=== PATIENT | female | born 1955 | race Caucasian/White ===

== ENCOUNTER 2018-03-24 12:53 | Outpatient (CLI) | payer OTHER ==
--- NOTE | 2018-03-24 14:13 | ULT ---
THYROID SONOGRAM: HISTORY: Right neck lump. FINDINGS: Right thyroid lobe is 5.3 cm in length and demonstrates several small solid and cystic nodules. They measure up to 1.1 cm greatest diameter at the inferior pole. Isthmus is 0.4 cm. Left thyroid lobe is 5.2 cm. A 0.9 cm hypoechoic nodule near the inferior pole lies adjacent to a 0. 6 cm cyst. IMPRESSION: Small nonspecific bilateral thyroid lobe nodules. Thyroid gland is slightly enlarged. No dominant a ggressive mass is evident. POS: [facility]
== END 2018-03-24 12:54 | disposition home or self-care (01) ==
LOC: BICULT 12:53
PROVIDERS: ATTEND Family Medicine
DX: R68.89 Other general symptoms and signs (principal); E04.2 Nontoxic multinodular goiter; E04.9 Nontoxic goiter, unspecified
CPT/HCPCS: 76536

== ENCOUNTER 2018-09-15 13:55 | Outpatient (CLI) | payer OTHER ==
--- NOTE | 2018-09-15 16:46 | MRI ---
PRE AND POSTCONTRAST ENHANCED MRI IMAGES CEVICAL SPINE. 09/15/18 HISTORY: Chronic neck pain. Multiplanar and multisequence pre and postcontrast enhanced MRI images cervical spine obtained. The spinal cord is unremarkable with no evidence of cord masses or lesions. C1-2: Unremarkable. C2-3: Unremarkable. C3-4: There is a minimal central disc bulge compressing the thecal sac. The neural foramen are patent . C4-5: Unremarkable. C5-6: There is minimal anterolisthesis of C5 on C6. The neural foramen are patent. No significant de gree of central stenosis seen. C6-7: There is disc desiccation. Some irregularity seen in the inferior end plate of C6 and superior end plate of C7. There is disc space height loss seen. There is a mild broad based disc bulge. The ne ural foramen are patent. C7-T1: Unremarkable. IMPRESSION: C6-7 disc desiccation, end plate irregularity and mild broad based disc bulge. POS: [facility]
--- NOTE | 2018-09-15 16:56 | MRI ---
MRI Brain W WO Con: 09/15/2018 12:00 AM CLINICAL HISTORY: Chronic headache. COMPARISON: 05/25/2016 FINDINGS: Extra axial spaces: Mild prominence of CSF signal due to parenchymal volume loss. Acute infarction: None. Ventricular system: Normal in size and morphology for the patient's age. Basal cisterns: Normal. Cerebral parenchyma: Normal. Midline shift: None. Cerebellum: Normal. Brainstem: Normal. Paranasal sinuses:Clear Intraaxial Enhancement: None IMPRESSION:No acute intracranial abnormality.
--- NOTE | 2018-09-15 16:58 | RAD ---
Radiograph cervical spine 5 views: HISTORY: 63-year-old female with cervicalgia FINDINGS: Multilevel bilateral high-grade facet DJD, including severe. High-grade degenerative disc disease at C6-7. The rest of the disc spaces are maintained. Grade 1 anterolisthesis of C5 on C6 due to facet DJD. Vertebral body heights are maintained. IMPRESSION: Cervical spondylosis, including high-grade degenerative disc disease at C6-7, and multilevel high-gra de bilateral facet osteoarthrosis at all levels, including severe.
== END 2018-09-15 13:56 | disposition home or self-care (01) ==
LOC: BICMRI 13:55
DX: G43.719 Chronic migraine without aura, intractable, without status migrainosus (principal); M54.2 Cervicalgia; G89.29 Other chronic pain; M50.323 Other cervical disc degeneration at C6-C7 level; M50.223 Other cervical disc displacement at C6-C7 level; M47.812 Spondylosis without myelopathy or radiculopathy, cervical region
CPT/HCPCS: 70553; 72040; 72156

== ENCOUNTER 2019-06-20 08:28 | Outpatient (CLI) | payer OTHER ==
--- NOTE | 2019-06-20 09:09 | BD ---
DEXA BONE DENSITY STUDY: Date: 06/20/2019 HISTORY: Osteoporosis screening. COMPARISON: None. FINDINGS: Lumbar Spine: BMD (g/cm2) L1 0.942 T-Score: -0.4 Z-Score: 1.1 L2 0.973 T-Score: -0.5 Z-Score: 1.2 L3 0.962 T-Score: -1.1 Z-Score: 0.7 L4 0.889 T-Score: -1.6 Z-Score: 0.3 L1-L4 0.939 T-Score: -1.0 Z-Score: 0.8 Left Femoral Neck: 0.725 T-Score: -1.1 Z-Score: 0.4 Total Femur: 0.900 T-Score: -0.3 Z-Score: 0.9 WHO Classification: Osteopenia. 10 YEAR FRACTURE RISK: Major osteoporotic fracture: 13% Hip fracture: 1.2% IMPRESSION: Osteopenia with fracture risk as above. POS: [facility]
--- NOTE | 2019-06-20 09:11 | MMO ---
Bilateral MAMMO Bilat Screen [facility]. CLINICAL HISTORY: Patient is 63 years old and is seen for screening. The patient has the following family history of breast cancer: 3 maternal aunts and cousin gender unknown. The patient has no personal history of cancer. VIEWS: The views performed were: bilateral craniocaudal with tomosynthesis and bilateral mediolateral oblique with tomosynthesis. FILMS COMPARED: The present examination has been compared to prior imaging studies performed at 04/20/2016, and at [facility] on 09/11/2013. This study has been interpreted with the assistance of computer-aided detection. MAMMOGRAM FINDINGS: There are scattered fibroglandular densities. There are no suspicious masses, suspicious calcifications, or new areas of architectural distortion. IMPRESSION: THERE IS NO MAMMOGRAPHIC EVIDENCE OF MALIGNANCY. A ROUTINE FOLLOW-UP MAMMOGRAM IN 1 YEAR IS RECOMMENDED. THE RESULTS OF THIS EXAM WERE SENT TO THE PATIENT. ACR BI-RADS Category 1 - Negative MAMMOGRAPHY NOTE: 1. A negative mammogram report should not delay a biopsy if a dominant of clinically suspicious mass is present. 2. Approximately 10% to 15% of breast cancers are not detected by mammography. 3. Adenosis and dense breasts may obscure an underlying neoplasm. Reported by: FELA RAI MD Electonically Signed: [id number]
== END 2019-06-20 08:29 | disposition home or self-care (01) ==
LOC: BICMAMMO 08:28
PROVIDERS: ATTEND Obstetrics & Gynecology
DX: Z12.31 Encounter for screening mammogram for malignant neoplasm of breast (principal); Z13.820 Encounter for screening for osteoporosis; M85.89 Other specified disorders of bone density and structure, multiple sites; Z80.3 Family history of malignant neoplasm of breast
CPT/HCPCS: 77063; 77067; 77080

== ENCOUNTER 2019-06-22 16:16 | Outpatient (CLI) | payer OTHER ==
--- NOTE | 2019-06-22 16:36 | RAD ---
Left knee 3 views HISTORY: Left knee pain. FINDINGS: Moderate joint space narrowing of the lateral patellofemoral facet. Osteophytosis throughou t each compartment. No acute fracture, dislocation, or fluid distention of the suprapatellar bursa. IMPRESSION: Moderate osteoarthritic changes most pronounced at the lateral patellofemoral facet.
--- NOTE | 2019-06-22 16:37 | RAD ---
Right knee 3 views HISTORY: Right knee pain. FINDINGS: Moderate tricompartmental osteophytosis. Moderate joint space loss at the lateral patellofe moral facet. No acute fracture, dislocation, or fluid distention of the suprapatellar bursa. IMPRESSION: Moderate osteoarthritic changes most pronounced at the lateral patellofemoral facet.
== END 2019-06-22 16:17 | disposition home or self-care (01) ==
LOC: BICRAD 16:16
DX: M17.0 Bilateral primary osteoarthritis of knee (principal); M25.561 Pain in right knee; M25.562 Pain in left knee; M79.7 Fibromyalgia

== ENCOUNTER 2019-06-27 15:28 | Outpatient (CLI) | payer OTHER ==
--- NOTE | 2019-06-27 15:58 | ULT ---
THYROID ULTRASOUND INDICATION: Thyroid nodule follow-up TECHNIQUE: Grayscale and color Doppler images were obtained of the thyroid gland. COMPARISON: Thyroid ultrasound dated March 24, 2018 FINDINGS: Right thyroid lobe: The right thyroid lobe measures 5.5 x 1.5 x 1.9 cm. There is a solid isoechoic, w ell-circumscribed nodule within the mid to lower pole of the right thyroid gland that has mildly enlarged from the prior examination where this thyroid lesion measured 1.1 cm in its greatest dimensi on. There are small cystic lesions within the mid to superior pole right thyroid gland measuring 4 mm which are likely benign. There is a small 6 mm hypoechoic solid nodule within the superior pole of the right thyroid gland that was not definitely appreciated on the comparison exam. Thyroid isthmus: The thyroid isthmus measures 0.31 cm. Left thyroid lobe: The left thyroid lobe measures 5.3 x 1.4 x 1.4 cm cm. There is a 7 mm, solid, isoe choic nodule within the lower pole left thyroid gland which is stable. There is a small 5 x 7 mm cyst within the lower pole of the left thyroid gland. IMPRESSION: 1. Slight interval enlargement of the TIRADS 3 lesion involving the mid to lower pole of the right th yroid lobe. Follow-up ultrasound in one year is recommended. 2. Stable TIRADS 3 lesions in the lower pole left thyroid lobe. No additional sonographic follow-up i s recommended as this lesion is below 1.5 cm in size. Small 6 mm TIRADS 3 lesion within the superior pole the right thyroid lobe also does not require ultrasound follow-up. 3. Stable TIRADS 1 lesions of the right and left thyroid lobe consistent with cysts.
== END 2019-06-27 15:29 | disposition home or self-care (01) ==
LOC: BICULT 15:28
PROVIDERS: ATTEND Internal Medicine Endocrinology, Diabetes & Metabolism
DX: E04.2 Nontoxic multinodular goiter (principal); E07.89 Other specified disorders of thyroid
CPT/HCPCS: 76536

== ENCOUNTER 2020-01-30 16:46 | Outpatient (CLI) | payer MEDICARE, OTHER ==
--- NOTE | 2020-01-30 17:14 | RAD ---
EXAM: Chest PA and lateral: HISTORY: Shortness of breath. COMPARISON: 11/11/2016 FINDINGS: Heart: Normal cardiac silhouette Aorta: Unremarkable Pulmonary vessels: Normal Costophrenic angles: Costophrenic angles are clear. Lungs: No consolidation or masses. Chronic lung parenchymal changes. Hyperinflation. Pneumothorax: No pneumothorax Osseous structures: No osseous abnormalities IMPRESSION: No acute cardiopulmonary process. COPD.
== END 2020-01-30 16:47 | disposition home or self-care (01) ==
LOC: SCSRAD 16:46
DX: J06.9 Acute upper respiratory infection, unspecified (principal); J98.11 Atelectasis; R06.02 Shortness of breath; R05 Cough; J44.9 Chronic obstructive pulmonary disease, unspecified
CPT/HCPCS: 71046

== ENCOUNTER 2020-07-22 07:17 | Outpatient (CLI) | payer MEDICARE, OTHER | END 2020-07-22 07:18 | disposition home or self-care (01) | LOC: BICULT 07:17 | PROVIDERS: ATTEND Internal Medicine Gastroenterology | DX: K21.9 Gastro-esophageal reflux disease without esophagitis (principal); R19.00 Intra-abdominal and pelvic swelling, mass and lump, unspecified site; K57.90 Diverticulosis of intestine, part unspecified, without perforation or abscess without bleeding; K76.0 Fatty (change of) liver, not elsewhere classified | CPT/HCPCS: 93975 ==

== ENCOUNTER 2020-09-18 07:06 | Outpatient (CLI) | payer MEDICARE, OTHER | END 2020-09-18 07:07 | disposition home or self-care (01) | LOC: BICULT 07:06 | PROVIDERS: ATTEND Internal Medicine Endocrinology, Diabetes & Metabolism | DX: E04.2 Nontoxic multinodular goiter (principal); E06.3 Autoimmune thyroiditis | CPT/HCPCS: 76536 ==

== ENCOUNTER 2020-09-18 07:12 | Outpatient (CLI) | payer MEDICARE, OTHER | END 2020-09-18 07:13 | disposition home or self-care (01) | LOC: BICMAMMO 07:12 | PROVIDERS: ATTEND Obstetrics & Gynecology | DX: Z12.31 Encounter for screening mammogram for malignant neoplasm of breast (principal); Z80.3 Family history of malignant neoplasm of breast | CPT/HCPCS: 77063; 77067 ==

== ENCOUNTER 2021-06-01 15:21 | Outpatient (CLI) | payer MEDICARE, OTHER | END 2021-06-01 15:22 | disposition home or self-care (01) | LOC: BICRAD 15:21 | PROVIDERS: ATTEND Nurse Practitioner Family | DX: M54.2 Cervicalgia (principal); M54.50 Low back pain, unspecified; M79.7 Fibromyalgia; M19.90 Unspecified osteoarthritis, unspecified site; M54.6 Pain in thoracic spine; M62.830 Muscle spasm of back; R26.89 Other abnormalities of gait and mobility; M25.552 Pain in left hip | CPT/HCPCS: 72040; 72072; 72100 ==

== ENCOUNTER 2021-09-24 09:19 | Outpatient (CLI) | payer MEDICARE, OTHER | END 2021-09-24 09:20 | disposition home or self-care (01) | LOC: BICMAMMO 09:19 | PROVIDERS: ATTEND Obstetrics & Gynecology | DX: Z12.31 Encounter for screening mammogram for malignant neoplasm of breast (principal); Z80.3 Family history of malignant neoplasm of breast | CPT/HCPCS: 77063; 77067 ==

== ENCOUNTER 2022-01-05 07:37 | Outpatient (CLI) | payer MEDICARE, OTHER ==
[2022-01-05] MEDS ORDERED: Iopamidol-370 76% 500 ML 1 ML ONE (09:06)
== END 2022-01-05 07:38 | disposition home or self-care (01) ==
LOC: BICCT 07:37
PROVIDERS: ATTEND Nurse Practitioner Family
DX: R14.0 Abdominal distension (gaseous) (principal); R63.5 Abnormal weight gain; R53.82 Chronic fatigue, unspecified; Z79.890 Hormone replacement therapy; K76.9 Liver disease, unspecified
CPT/HCPCS: 74178; Q9967

== ENCOUNTER 2022-09-28 11:47 | Outpatient (CLI) | payer MEDICARE, OTHER | END 2022-09-28 11:48 | disposition home or self-care (01) | LOC: BICULT 11:47 | PROVIDERS: ATTEND Internal Medicine Endocrinology, Diabetes & Metabolism | DX: E06.3 Autoimmune thyroiditis (principal); E04.2 Nontoxic multinodular goiter | CPT/HCPCS: 76536 ==

== ENCOUNTER 2022-10-14 14:31 | Outpatient (CLI) | payer MEDICARE, OTHER | END 2022-10-14 14:32 | disposition home or self-care (01) | LOC: BICMAMMO 14:31 | PROVIDERS: ATTEND Obstetrics & Gynecology | DX: N64.89 Other specified disorders of breast (principal) | CPT/HCPCS: 76642; 77065; G0279 ==

== ENCOUNTER 2022-12-23 06:16 | Day surgery (SDC) | payer MEDICARE, OTHER ==
[2022-12-21 13:15] VITALS: BMI 27.4
[2022-12-23] MEDS ORDERED: Heparin 25,000 units/D5W 500 ML ONE (06:44)
[2022-12-23] MEDS ORDERED: Heparin 10,000 UNITS/ 10 ML VIAL ONE (06:44)
[2022-12-23] MEDS ORDERED: Protamine Sulfate 50 MG/5 ML VIAL ONE (06:44)
[2022-12-23] MEDS ORDERED: Midazolam HCl 2 mg/2 ml Vial ONE (07:31)
[2022-12-23] MEDS ORDERED: SUGAMMADEX SODIUM 200 MG/2 ML VIAL ONE (07:32)
[2022-12-23] MEDS ORDERED: fentaNYL PF 100 MCG/2 ML SYRINGE ONE (07:32)
[2022-12-23] MEDS ORDERED: Propofol 500 MG/50 ML VIAL ONE (07:32)
[2022-12-23] MEDS ORDERED: Lidocaine 1% PF 5 ML VIAL ONE (08:12)
[2022-12-23] MEDS ORDERED: Esmolol 100 MG/10 ML VIAL ONE (08:12)
[2022-12-23] MEDS ORDERED: Ondansetron PF 4 MG/2 ML Vial ONE (08:12)
[2022-12-23] MEDS ORDERED: PROPOFOL 200 MG/20 ML VIAL ONE (08:12)
[2022-12-23] MEDS ORDERED: Rocuronium Bromide 10 MG/ML (10ML VIAL) ONE (08:12)
== END 2022-12-23 14:50 | disposition home or self-care (01) ==
LOC: SDC 06:16
PROVIDERS: ATTEND Internal Medicine Cardiovascular Disease
DX: I48.4 Atypical atrial flutter (principal); I48.0 Paroxysmal atrial fibrillation; I34.0 Nonrheumatic mitral (valve) insufficiency; G47.33 Obstructive sleep apnea (adult) (pediatric); Z90.49 Acquired absence of other specified parts of digestive tract; Z90.89 Acquired absence of other organs; Z88.2 Allergy status to sulfonamides; Z88.6 Allergy status to analgesic agent; Z88.1 Allergy status to other antibiotic agents; Z98.890 Other specified postprocedural states
CPT/HCPCS: 85347 ×2; 93005; 93312; 93655; 93656; 93657; C1732; C1759; C1760; C1769; C1894 ×7; C2630; 93010; J1644; J2250; J2405; J2704; J2720

== ENCOUNTER 2023-02-15 06:20 | Day surgery (SDC) | payer MEDICARE, OTHER ==
[2023-02-14 09:20] VITALS: BMI 27.4
[2023-02-15] MEDS ORDERED: PROPOFOL 0 ML ONE (07:23)
[2023-02-15] MEDS ORDERED: PROPOFOL 20 ML ONE (07:24)
== END 2023-02-15 08:41 | disposition home or self-care (01) ==
LOC: SDC 06:20
PROVIDERS: ATTEND Internal Medicine Cardiovascular Disease
PROC: 5A2204Z Restoration of Cardiac Rhythm, Single (ICD-10-PCS; principal; 2023-02-15)
DX: I48.19 Other persistent atrial fibrillation (principal); I48.4 Atypical atrial flutter; I34.1 Nonrheumatic mitral (valve) prolapse; G47.30 Sleep apnea, unspecified; G47.33 Obstructive sleep apnea (adult) (pediatric); Z98.51 Tubal ligation status; Z98.890 Other specified postprocedural states; Z79.899 Other long term (current) drug therapy; Z79.01 Long term (current) use of anticoagulants; Z91.018 Allergy to other foods; Z88.1 Allergy status to other antibiotic agents
CPT/HCPCS: 92960; 93005; 93010; J2704

== ENCOUNTER 2023-05-16 09:21 | Outpatient (CLI) | payer MEDICARE, OTHER | END 2023-05-16 09:22 | disposition home or self-care (01) | LOC: BICMRI 09:21 | PROVIDERS: ATTEND Family Medicine Sports Medicine | DX: M79.672 Pain in left foot (principal); M72.2 Plantar fascial fibromatosis; S96.912A Strain of unspecified muscle and tendon at ankle and foot level, left foot, initial encounter; M25.472 Effusion, left ankle ==

== ENCOUNTER 2023-05-19 09:32 | Outpatient (CLI) | payer MEDICARE, OTHER | END 2023-05-19 09:33 | disposition home or self-care (01) | LOC: BICMAMMO 09:32 | PROVIDERS: ATTEND Obstetrics & Gynecology | DX: R92.8 Other abnormal and inconclusive findings on diagnostic imaging of breast (principal); N64.89 Other specified disorders of breast | CPT/HCPCS: 77065; G0279 ==

== ENCOUNTER 2024-02-13 13:13 | Day surgery (SDC) | payer MEDICARE, OTHER ==
[2024-02-13] MEDS ORDERED: Lidocaine 1% PF 5 ML VIAL ONE (14:11)
[2024-02-13] MEDS ORDERED: Sodium Bicarbonate 2.5 MEQ/5 ML SDV ONE (14:12)
== END 2024-02-13 15:10 | disposition home or self-care (01) ==
LOC: ULT 13:13
PROVIDERS: ATTEND Otolaryngology Plastic Surgery within the Head & Neck
PROC: 0G9 Endocrine System, Drainage (ICD-10-PCS; principal; 2024-02-13)
DX: E07.9 Disorder of thyroid, unspecified (principal)
CPT/HCPCS: 10005; 88173; 88305